=== PATIENT | female | born 1940 | race Caucasian/White ===

== ENCOUNTER 2022-01-24 22:47 | Inpatient (IN) | payer MEDICARE, SELFPAY ==
[2022-01-24 22:49] VITALS: BP 146/78; PULSE 73; RESP 18; TEMP 36.9; O2SAT 96
--- NOTE | 2022-01-24 22:56 | XRR_ITS ---
PROCEDURE INFORMATION: Exam: XR Right Hip Exam date and time: 01/24/2022 10:04 PM Age: 81 years old Clinical indication: Injury or trauma; Fall; Blunt trauma (contusions or hematomas); Right; Patient HX: R hip pain w shortening and rotation after tripping over dog; Additional info: Fall with right hip pain TECHNIQUE: Imaging protocol: XR Right hip. Views: 1 view hip with pelvis when performed. COMPARISON: No relevant prior studies available. FINDINGS: Bones/joints: There is intertrochanteric fracture proximal right femur with varus angulation. Soft tissues: Unremarkable. XR/XR hip RT 2-3V wo/w pel* [id number] IMPRESSION: Proximal right femoral fracture.
--- NOTE | 2022-01-24 22:57 | ED_ITS ---
HPI - Fall General: Chief Complaint: Fall Stated Complaint: fall Time Seen by Provider: 01/24/22 22:48 History of Present Illness: Patient is an 81-year-old female comes to the ED via EMS with right hip pain after fall. While en route EMS placed an IV and gave her fentanyl to help with pain. Fall occurred approximately an hour before arrival. She was outside and one of her dogs ran under her legs causing her to trip and she fell onto her right hip. Patient says she did not hit her head. Denies loss of consciousness, headache or neck pain. She had pain in her right hip and says she had to scoot herself to the house to go inside and call the ambulance. Pain is controlled here in the ED since fentanyl was given. Patient says she does not take any daily medications and no known chronic health conditions. Associated symptoms-after fall: Denies abdominal pain, chest pain, headache(s), hematuria or neck pain Review of Systems Const: Denies: fever(s), chills or fatigue Eyes: Denies: change in vision or eye discomfort ENMT: Denies: throat pain, odynophagia, nasal discharge or nasal congestion Card: Denies: chest pain, palpitations, edema, swelling of feet/ankles, dys pnea on exertion or orthopnea Resp: Denies: dyspnea, productive cough or non-productive cough GI: Denies: abdominal pain, nausea, vomiting, diarrhea, constipation or hematochezia : Denies: flank pain, dysuria or hematuria Musc: Reports: extremity pain (right hip pain); Denies: neck pain, back pain or extremity swelling Skin/Breast: Denies: rash or new lesions Neuro: Denies: headache(s), numbness in extremities or weakness in extremities [facility] ED PFSH: Medical History No pertinent family history No pertinent past medical history Surgical History H/O foot surgery Family History Other No significant family history Social History Smoking and tobacco status: never smoked Alcohol intake: never Substance/Drug Use: never Lives independently: Yes Household members: none Marital status: Single Physical Exam Const: COMMON NORMALS: patient oriented x3 and alert GENERAL APPEARANCE: cooperative HENMT: COMMON NORMALS: normocephalic HEAD & SCALP: normocephalic MOUTH: Normal oral and palatal mucosa present THROAT: posterior oropharynx normal and uvula midline Eye: COMMON NORMALS: Equal, round and reactive pupils present and conjunctivae normal CONJUNCTIVA: Yes conjunctivae normal PUPIL: Yes Equal, round and reactive pupils present Neck/C-Spine: COMMON NORMALS: supple GENERAL: Yes normal visual inspection Resp: COMMON NORMALS: normal respiratory effort, No retractions, No use of accessory muscles and clear to auscultation bilaterally AUSCULTATION: clear to auscultation bilaterally Cardio: COMMON NORMALS: regular rate, regular rhythm, S1 normal heart sound present, S2 normal heart sound present, No gallops present (Cardio), No clicks present (Cardio), No murmurs present (Cardio) and Peripheral pulses 2+ throughout RATE: regular rate RHYTHM: regular rhythm HEART SOUNDS: S1 normal heart sound present and S2 normal heart sound present PERIPHERAL PULSES: Peripheral pulses 2+ throughout GI: COMMON NORMALS: Normal to inspection, nondistended, normoactive bowel sounds present, Soft to palpation, non-tender and no masses PALPATION: Yes Soft to palpation : COMMON NORMALS: Yes no CVA tenderness BLADDER/KIDNEY EXAM: Yes no CVA tenderness Back/Pelvis: COMMON NORMALS: no CVA tenderness Extremity: NARRATIVE EXTREMITY EXAM: Right leg externally rotated and shortened. Neurovascular intact distally in right leg. Neuro: COMMON NORMALS: patient oriented x3 SENSORIUM/ORIENTATION: Yes alert Skin: GENERAL SKIN EXAM: dry skin Course Consultations: Consultation #1: I contacted Dr. Christine and told her about patient's injury and the right hip fracture seen on the x-ray. Patient will be admitted and Dr. Christine will be consulted. Time: 23:34 Vital Signs: Vital signs: Vital Signs Temperature 99.4 F 01/25/22 00:47 Pulse Rate 84 01/25/22 00:47 Respiratory Rate 17 01/25/22 00:47 Blood Pressure 169/76 01/25/22 00:47 Pulse Oximetry 96 01/25/22 00:47 MDM - Fall Medical Decision Making Patient is an 81-year-old female comes to the ED via EMS after having a fall. She is having right hip pain. Vitals are stable. Patient has an externally rotated and shortened right leg. Neurovascular tact distally. X-ray of right hip shows intertrochanteric hip fracture. Dr. Christine was contacted and she will be the consulting doctor patient will be admitted to hospitalist. Dr. Lanza placed the admitting orders. Lab Data I reviewed the patient's lab results. : 01/24/22 23:35 01/24/22 23:35 Radiology Impressions Hip/Pelvis X-Ray 01/24/22 22:56 IMPRESSION: Proximal right femoral fracture. Chest X-Ray 01/24/22 23:12 IMPRESSION: No acute infiltrate. Imaging Data Xray Ortho: My impression: Right hip x-ray?intertrochanteric hip fracture. Discharge Plan Discharge Patient Disposition: Admitted As Inpatient Admit Provider: Serafin Cartwright Clinical Impression: Closed fracture of right hip Condition: Stable Coding Level of Care Code ED Bicycle Repairman for Chg Fwd Exam Comprehensive
--- NOTE | 2022-01-24 23:12 | XRR_ITS ---
PROCEDURE INFORMATION: Exam: XR Chest Exam date and time: 01/24/2022 10:09 PM Age: 81 years old Clinical indication: Pre-operative exam; Respiratory screening exam; Patient HX: R hip FX - tripped over dog; Additional info: Fall TECHNIQUE: Imaging protocol: XR of the chest. Views: 1 view. COMPARISON: No relevant prior studies available. FINDINGS: Lungs: Visualized portions of the lungs are clear. There is no pulmonary vascular congestion. Pleural spaces: There is mild apical pleural thickening. Heart/Mediastinum: Heart is within normal limits of size. Bones/joints: Unremarkable. XR/XR chest 1V portable [id number] IMPRESSION: No acute infiltrate.
--- NOTE | 2022-01-24 23:13 | ECG_ITS ---
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 Measurements Intervals [place] Rate: 67 P: 81 ME: 189 QRS: 59 QRSD: 90 T: 41 QT: 418 QTc: 442 Interpretive Statements SINUS RHYTHM POSSIBLE RIGHT VENTRICULAR CONDUCTION DELAY [RSR (QR) IN V1/V2] WARNING: DATA QUALITY MAY AFFECT INTERPRETATION No previous ECG available for comparison Electronically Signed On 01-25-2022 17:26:56 CDT by Susu Asher M.D. [email or web address]
[2022-01-24 23:26] VITALS: BP 157/72; PULSE 75; RESP 18; O2SAT 98
[2022-01-24 23:56] LABS: Basophils # 0.1 10^3/uL (0.0-0.1); Basophils % 0.4 %; Eosinophils # 0.1 10^3/uL (0.0-0.8); Eosinophils % 0.8 %; Hematocrit 36.2 % (37.0-47.0); Hemoglobin 11.7 g/dL (11.5-15.3); Lymphocytes # 1.4 10^3/uL (0.8-4.8); Lymphocytes % 10.2 %; Mean Corpuscular HGB Conc 32.3 g/dL (30.0-36.0); Mean Corpuscular Hemoglobin 28.9 pg (28.0-34.0); Mean Corpuscular Volume 89.4 fl (81-99); Mean Platelet Volume 9.3 fL (7.4-10.4); Monocytes # 0.8 10^3/uL (0.2-0.9); Monocytes % 5.8 %; Neutrophils # 11.22 10^3/uL (1.8-7.7); Neutrophils % 82.4 %; Nucleated Red Blood Cells % 0 %; Platelet Count 245 10^3/cmm (130-400); Red Blood Count 4.05 10^6/uL (4.1-5.3); Red Cell Distribution Width 14.2 % (12.1-15.1); White Blood Count 13.6 10^3/uL (4.0-10.0)
[2022-01-25] VITALS (19 sets, daily range): BP systolic 105–169; BP diastolic 55–77; PULSE 67–88; RESP 16–19; TEMP 36.3–37.5; O2SAT 95–99; BMI 22.7
--- NOTE | 2022-01-25 | XR_ITS ---
WS: [id number] INTRAOPERATIVE TECHNIQUE: 5 Spot fluoroscopic images for intraoperative purposes. FLUOROSCOPY TIME: 122.5 seconds CLINICAL INFORMATION: [facility] COMPARISON: None. FINDINGS: Intramedullary femoral donny and screw fixation RIGHT hip fracture. Improved anatomic alignment today. Hardware appears in good position. XR/XR hip RT 1V wo/w pel [id number] IMPRESSION: Images obtained for intraoperative purposes.
--- NOTE | 2022-01-25 | SCC_ITS ---
Procedure done: Open reduction internal fixation right intertrochanteric hip fracture with angulation 122.5 seconds of fluoroscopic guidance, for a cumulative dose of 6.94 mGy, was provided to Dr. Christine by the radiology department. C-arm images of the RIGHT hip were saved for the patient's permanent record. [facility]
--- NOTE | 2022-01-25 00:03 | PM.HP ---
Providers/Chief Complaint Admitting Physician: Serafin Cartwright Chief Complaint: fall History of Present Illness Very pleasant, healthy 81-year-old lady without significant past medical history, physically active, tripped over one of her dogs this evening falling down her right hip with sustained right intertrochanteric hip fracture. She reports she otherwise has been at baseline state of health. She denies any recent complaints. She states she is not limited in ambulation on flat ground, and is able to take flights of stairs without having to catch her breath. Review of Systems Const: Denies: fever(s), chills, body aches or malaise Eyes: Denies: change in vision or eye redness ENMT: Denies: throat pain, oral sores or ear or mastoid pain Card: Denies: chest pain, edema, pre-syncope or dyspnea on exertion Resp: Denies: dyspnea, productive cough, change in phlegm color or hemoptysis GI: Denies: abdominal pain, nausea, vomiting, diarrhea, constipation, hematochezia or melena : Denies: flank pain, dysuria, urinary frequency, urinary urgency or hematuria Musc: Reports: joint pain (R hip) and deformity; Denies: back pain, joint swelling or joint redness Skin/Breast: Denies: rash, sores or new lesions Neuro: Denies: headache(s), numbness in extremities, weakness in extremities, dizziness, confusion or seizure-like activity Endo: Denies: polyuria or polydipsia Hemal/Lymph: Denies: easy bleeding or purpura All/Imm: Denies: urticaria, throat swelling or tongue swelling PFSH Acute PFSH: Medical History No pertinent family history No pertinent past medical history Surgical History H/O foot surgery Family History (Updated 01/25/22 @ 00:12 by Serafin Cartwright MD) Other No significant family history Social History Smoking and tobacco status: never smoked Alcohol intake: never Substance/Drug Use: never Lives independently: Yes Household members: none Marital status: Single Vitals/I&O/Wt Last Vital Signs Temp 98.4 F 01/24/22 22:49 Pulse 73 01/24/22 22:49 Resp 18 01/24/22 22:49 BP 146/78 01/24/22 22:49 Pulse Ox 96 01/24/22 22:49 Physical Exam Const: COMMON NORMALS: no acute distress and patient oriented x3 HENMT: COMMON NORMALS: oropharynx normal Neck/C-Spine: COMMON NORMALS: no JVD Resp: COMMON NORMALS: normal respiratory effort and clear to auscultation bilaterally AUSCULTATION: clear to auscultation bilaterally Cardio: COMMON NORMALS: no JVD, regular rhythm, S1 normal heart sound present, S2 normal heart sound present and No murmurs present (Cardio) RHYTHM: regular rhythm HEART SOUNDS: S1 normal heart sound present and S2 normal heart sound present GI: COMMON NORMALS: Normal to inspection, nondistended, normoactive bowel sounds present, Soft to palpation and non-tender PALPATION: Yes Soft to palpation Extremity: COMMON NORMALS: no joint enlargement and no pedal edema OTHER: Everted, shortened right leg. Warm, perfused. Neuro: COMMON NORMALS: patient oriented x3 and moves all extremities Skin: COMMON NORMALS: no rashes or lesions noted GENERAL SKIN EXAM: no rashes or lesions noted OTHER: Minimal abrasion/wound medial left foot, crusted blood she states sustained a scrape trying to go back to the house after her fall. Data : 01/24/22 23:35 01/24/22 23:35 A&P Assessment and plan (1) Closed fracture of right hip: After a mechanical fall. She is otherwise healthy. With unrestricted ambulation on flat ground, taking stairs without shortness of breath. Below average risk on NSQIP calculation. Would not pursue any additional work-up prior to surgical intervention with usual precautions. Recheck hemoglobin in the morning. NPO. Pending discussion with orthopedics. With regards to disposition she states she would very much like to avoid going to long term and states has lots of friends and family to help her achieve her goal of going back home. Status: Acute Qualifiers: Encounter type: initial encounter Qualified Code(s): S72.001A - Fracture of unspecified part of neck of right femur, initial encounter for closed fracture Plan Small abrasion on medial left foot when trying to crawl for help. Amount of dried blood, small abrasion, less than 0.5 cm, appears clean, no surrounding erythema. Please reassess. Attestations Medical Necessity Statement*: Admission of over 2 midnights is anticipated for assessment and management of right hip fracture. Coding Level of Care Code Acute Builder Beam for Randall Delacruz Diagnoses Closed fracture of right hip S72.001A Encounter type: initial encounter
[2022-01-25 00:18] LABS: Alanine Aminotransferase 15 U/L (0-33); Albumin Level 4.3 g/dL (3.5-5.2); Alkaline Phosphatase 74 IU/L (35-105); Anion Gap 16.7 (5-19); Aspartate Amino Transferase 22 U/L (0-32); Blood Urea Nitrogen 15 mg/dL (8-23); Calcium 9.2 mg/dL (8.5-10.5); Carbon Dioxide 21 mmol/L (22-29); Chloride 101 mmol/L (98-107); Globulin 2.6 g/dL (1.3-4.6); Glucose 109 mg/dL (65-115); Osmolality Calculated 281 mOsm/kg (285-295); Potassium 3.7 mmol/L (3.5-5.1); Sodium 135 mmol/L (136-145); Total Bilirubin 0.3 mg/dL (0.15-1.2); Total Protein 6.9 g/dL (6.6-8.7)
[2022-01-25 00:24] LABS: INR 0.98 (0.8-1.2)
[2022-01-25] MEDS: heparin 5,000 unit/mL INJ 1 mL 5000 UNIT SUBCUT (01:05)
[2022-01-25] MEDS: morphine 4 mg/mL SDV 1 mL 2 MG IVP (01:05)
--- NOTE | 2022-01-25 07:43 | ANES.PREANE2 ---
Pre-Anesthetic Assessment Height/Weight: Weight 73.346 kg Temp Pulse Resp BP Pulse Ox 98.6 F 76 18 130/69 95 01/25/22 07:36 01/25/22 07:36 01/25/22 07:36 01/25/22 07:36 01/25/22 07:36 Operation Date: 01/25/22 08:40 Proposed Procedures p Trochanteric Femoral Nail(Right) - Carola Christine MD Familial anesthetic complications: None Was Beta Kofi taken within 24 hours: N/A Was Clonidine taken within 24 hours: N/A Last intake: > 8hrs Social No alcohol and No tobacco Exam alert, oriented x 3, clear to auscultation bilaterally and regular rate & rhythm Airway Mallampati: Class I Dentition: full Pulmonary None reported CV/HEM None reported None reported Hepatic None reported GI None reported Metabolic None reported Musc/skel None reported Neuropsych None reported Anesthetic Plan ASA status: 1 Anesthesia: General Risk of > 500 ml blood loss (7ml/kg in children): No Medications/Allergies Home Medications Medication Instructions Recorded Confirmed Last Taken Type No Known Home Medications 01/25/22 01/25/22 Unknown History Allergies Allergy/AdvReac Type Severity Reaction Status Date / Time Penicillins Allergy Severe ALGY-Anaphy Unverified 01/25/22 00:27 laxis Current Medications Generic Name Dose Route Start Last Admin Trade Name Freq PRN Reason Stop Dose Admin Morphine Sulfate 2 mg 01/25/22 00:50 01/25/22 01:05 Morphine 4 Mg/Ml Sdv 1 Ml IVP 2 mg Q4H PRN Administration SEVERE PAIN PFSH Anesthesia Medical History No pertinent family history No pertinent past medical history Surgical History H/O foot surgery Family History Other No significant family history Social History Smoking and tobacco status: never smoked Alcohol intake: never Substance/Drug Use: never Lives independently: Yes Household members: none Marital status: Single Data Anesthesia : 01/24/22 23:35 01/24/22 23:35 Short CBC 01/24/22 Range/Units 23:35 WBC 13.6 H (4.0-10.0) 10^3/uL Hgb 11.7 (11.5-15.3) g/dL Hct 36.2 L (37.0-47.0) % MCV 89.4 (81-99) fl Plt Count 245 (130-400) 10^3/cmm Neut % (Auto) 82.4 % Neut # (Auto) 11.22 H (1.8-7.7) 10^3/uL BMP 01/24/22 23:35 Sodium 135 L Potassium 3.7 Chloride 101 Carbon Dioxide 21 L BUN 15 Creatinine 0.5 Glucose 109 Calcium 9.2 Liver Function 01/24/22 Range/Units 23:35 Total Bilirubin 0.3 (0.15-1.2) mg/dL AST 22 (0-32) U/L ALT 15 (0-33) U/L Alkaline Phosphatase 74 (35-105) IU/L Albumin 4.3 (3.5-5.2) g/dL Coags 01/24/22 23:35 PT 13.30 INR 0.98 Cardiac Studies: No Data to Display
--- NOTE | 2022-01-25 07:47 | P.CONIM_ITS ---
Providers/Reason For Consult Consulting Physician/Specialty*: Carola Christine MD Reason for Consult*: Right intertrochanteric hip fracture Requesting Physician: Frank Lanza MD Attending Physician: Serafin Cartwright History of Present Illness History of Present Illness Alida Drake is a 81 year old female who fell over her collie onto her right hip. Previously, she had no significant past medical history, she was very physically active, and she was rather healthy at baseline. She is able to go up and down stairs without respiratory issues. Review of Systems Const: Denies: fever(s), chills, body aches or malaise Eyes: Denies: change in vision or eye redness ENMT: Denies: throat pain, oral sores or ear or mastoid pain Card: Denies: chest pain, edema, pre-syncope or dyspnea on exertion Resp: Denies: dyspnea, productive cough, change in phlegm color or hemoptysis GI: Denies: abdominal pain, nausea, vomiting, diarrhea, constipation, hematoc hezia or melena : Denies: flank pain, dysuria, urinary frequency, urinary urgency or hematuria Musc: Reports: joint pain (R hip) and deformity; Denies: back pain, joint swelling or joint redness Skin/Breast: Denies: rash, sores or new lesions Neuro: Denies: headache(s), numbness in extremities, weakness in extremities, dizziness, confusion or seizure-like activity Endo: Denies: polyuria or polydipsia Hemal/Lymph: Denies: easy bleeding or purpura All/Imm: Denies: urticaria, throat swelling or tongue swelling Medications/Allergies Home Medications Medication Instructions Recorded Confirmed Last Taken Type No Known Home Medications 01/25/22 01/25/22 Unknown History Allergies Allergy/AdvReac Type Severity Reaction Status Date / Time Penicillins Allergy Severe ALGY-Anaphy Unverified 01/25/22 00:27 laxis Current Medications Generic Name Dose Route Start Last Admin Trade Name Freq PRN Reason Stop Dose Admin Morphine Sulfate 2 mg 01/25/22 00:50 01/25/22 01:05 Morphine 4 Mg/Ml Sdv 1 Ml IVP 2 mg Q4H PRN Administration SEVERE PAIN PFSH Acute PFSH: Medical History No pertinent family history No pertinent past medical history Surgical History H/O foot surgery Family History Other No significant family history Social History Smoking and tobacco status: never smoked Alcohol intake: never Substance/Drug Use: never Lives independently: Yes Household members: none Marital status: Single Vitals/I&O/Wt Last Vital Signs Temp 98.6 F 01/25/22 07:36 Pulse 76 01/25/22 07:36 Resp 18 01/25/22 07:36 BP 130/69 01/25/22 07:36 Pulse Ox 95 01/25/22 07:36 01/24/22 01/25/22 01/25/22 22:59 06:59 14:59 Output Total 1250 / 1250 Balance -1250 / -1250 Weight last 48 hrs Weight 161 lb 11.2 oz Physical Exam Const: COMMON NORMALS: no acute distress, average body habitus, patient oriented x3 and alert GENERAL APPEARANCE: cooperative and comfortable ORIENTATION/CONSCIOUSNESS: Yes awake HENMT: COMMON NORMALS: normocephalic and atraumatic HEAD & SCALP: normocephalic and atraumatic Eye: GENERAL EYE: appearance normal, both eyes and all related structures Chest: COMMONS NORMALS: normal inspection of the chest Resp: COMMON NORMALS: normal respiratory effort EFFORT & INSPECTION: Yes able to speak in complete sentences and Yes symmetric chest movement Extremity: RIGHT LOWER EXTREMITY: Yes hip joint Right hip: Yes inspection (No significant ecchymosis), Yes palpation (Minimal tenderness), Yes ROM (Painful, able to move right foot.) and Yes neurovascular exam (Intact distally) Neuro: COMMON NORMALS: patient oriented x3 SENSORIUM/ORIENTATION: Yes alert Psych: COMMON NORMALS: mental status grossly normal APPEARANCE: Yes grossly normal ATTITUDE: Yes calm and Yes engaged ATTENTION/CONCENTRATION: Yes attention grossly intact Skin: COMMON NORMALS: no rashes or lesions noted GENERAL SKIN EXAM: no rashes or lesions noted Urinary Catheter Management: Louise: Cath Placed During This Visit: yes, but has since been removed by the nurse Reason for Continuing Indwelling Catheter: Perioperative Use in Selected Surgeries Urinary Catheter Date of Insertion: 01/25/22 Urinary Catheter Time of Insertion: 00:50 Date Urinary Catheter Removed: 01/25/22 Time Urinary Catheter Discontinued: 00:50 Data : 01/24/22 23:35 01/24/22 23:35 Xray Ortho: I personally reviewed and interpreted this imaging study as follows: My impression: The patient has a right intertrochanteric hip fracture with comminution. She has nearly 90 degrees of angulation at the fracture site. There is significant shortening. A&P Assessment and plan (1) Closed intertrochanteric fracture of right hip: This 81-year-old woman was admitted last evening after tripping over her dogs which resulted in her falling onto her right hip. The patient brought to the emergency department and was found to have a right intertrochanteric hip fracture. I was called and arrangements were made for open reduction internal fixation. Status: Acute Consult Attestations Medical Necessity Statement: Patient requires hospitalization for intratrochanteric right hip fracture with significant angulation and displacement. Coding Level of Care Code Acute Sustainability Coordinator for Randall Delacruz Diagnoses Closed intertrochanteric fracture of right hip S72.141A
[2022-01-25] MEDS: sodium chloride 0.9% 1,000 ML 30 ML IV (07:55)
[2022-01-25] MEDS: CELEcoxib 200 mg Capsule 400 MG PO (07:56)
[2022-01-25] MEDS: acetaminophen 1,000 MG/100 ML PIGGYBACK 400 MG IV (07:56)
--- NOTE | 2022-01-25 08:01 | PC.NURSE ---
Patient left for surgery around 0730 this AM.
[2022-01-25] MEDS: vancomycin 1,000 MG in sodium chloride 0.9% 250 ML 250 MG IV (08:08)
--- NOTE | 2022-01-25 09:37 | P.OP_ITS ---
Operative Report Date of procedure: January 25, 2022 Pre-op diagnosis: Right intertrochanteric hip fracture Post-op diagnosis: Right intertrochanteric hip fracture Procedure done: Open reduction internal fixation right intertrochanteric hip fracture with angulation Implants: Gamma 3 trochanteric nail size 11 mm x 180 mm x 125 degrees, 10.5 mm x 100 mm gamma lag screw with a 5 mm x 35 mm distal locking screw Pathology: none sent Surgeon: Carola Christine Truck Crane Operator Helper: [facility] operating room technicians Anesthesia: General (LMA, ASA 1) Estimated blood loss (mL): 25 IV fluids (mL): 300 Urine output (mL): 300 Complications: None Findings: Comminuted right intertrochanteric hip fracture with approximately 90 degrees of varus angulation Condition: stable Disposition: PACU (Then to floor for postoperative rehabilitation and pain management) Brief History: This 81-year-old woman was in her usual state of good health when she tripped over her dog. She fell directly onto her right hip. She presented to the emergency room unable to ambulate with significant right hip pain. She was found to have a right intertrochanteric hip fracture and was admitted to the hospitalist team for preparation for surgery. Risks and complications of surgery were discussed with her. Consent was signed preoperatively. The patient was scheduled for the above procedure. Procedure: Patient is brought to the operating theater. After undergoing adequate general anesthesia with LMA, ASA 1, the patient was transferred to the fracture table, positioned on the table and fluoroscopic guidance obtained throughout the surgical procedure. Prior to the commencement of the surgical procedure, a surgical pause was performed. At the time of the surgical pause, we confirmed the site and side of surgery as well as preoperative surgical markings and a ppropriate and timely administration of IV antibiotics, vancomycin 1 g. Availability of equipment was also confirmed. Fluoroscopy was used to confirm the fracture was appropriately reduced in both AP and lateral planes. An incision was then made slightly above the greater trochanter to allow access to the greater trochanter. An awl was used to enter the greater trochanter and a guidewire was subsequently placed. Once the guidewire was confirmed to be in appropriate position in AP and lateral planes, reaming was accomplished over this to allow for the proximal diameter of the nail. Guidewire was then removed. An 11 mm x 180 mm x 125 degree gamma 3 trochanteric nail was placed into appropriate position with positioning being confirmed in AP and lateral planes on the x-ray. It passed without difficulty. Guidewire was then passed through the jigging system into the femoral head. We wanted to be center or slightly inferior and posterior to center. Guidewire was placed into appropriate position. Once the guidewire was in appropriate position and this position was confirmed by x-ray. This was then measured and we chose a 100 mm lag screw. We reamed to allow for the lag screw to be placed. The 100 mm lag screw was then passed into the femoral head through the trochanteric nail. This was passed uneventfully and again position was confirmed in AP and lateral planes. Compression was obtained under fluoroscopic guidance. The set screw was then placed in position, tightened completely, and subsequently backed off one-eighth turn. The construct was left in position and attention was directed distally. Cannulas were again used to determine appropriate placement for the distal screw. This was placed in position without difficulty. It was measured off of the drill. The appropriate length screw was then obtained and placed in position without difficulty. Once the screw was in position, we confirmed appropriate placement of the components, and we removed the jigging system. Attention was then directed to closure. The hip was copiously irrigated with normal saline with antibiotics. Following this it was dried and closed. Tensor fascia amber was closed proximally with 0 Vicryl in an interrupted fashion. Subcutaneous tissues were closed with 2-0 Monocryl, and the skin was closed with a continuous 3-0 Monocryl subcuticular stitch. This was then covered with Dermabond, Steri- Strips, and OpSite. The patient was removed from the fracture table and returned to recovery in satisfactory condition. The patient will be discharged to the floor for postoperative rehabilitation and pain management. There were no specimens obtained. Related Problem List Diagnoses (1) Closed intertrochanteric fracture of right hip:
[2022-01-25] MEDS: oxyCODONE 5 mg IR Tab/Cap PO (10:18)
--- NOTE | 2022-01-25 12:12 | PM.PN ---
Subjective Subjective: Patient was seen postoperatively she is alert oriented x3, on room air, pain is well controlled, she tells me that she wants to go home tomorrow, is ready to work with physical therapy Vitals/I&O/Wt Last Vital Signs Temp 97.6 F 01/25/22 09:53 Pulse 71 01/25/22 11:06 Resp 16 01/25/22 11:06 BP 131/60 01/25/22 09:53 Pulse Ox 98 01/25/22 11:06 01/24/22 01/25/22 01/25/22 22:59 06:59 14:59 Intake Total 1350 / 1350 Output Total 1250 / 1250 625 / 625 Balance -1250 / -1250 725 / 725 Weight last 48 hrs Weight 63.957 kg Weight 73.346 kg Physical Exam Const: COMMON NORMALS: no acute distress and patient oriented x3 Resp: COMMON NORMALS: normal respiratory effort, No retractions, No use of accessory muscles and clear to auscultation bilaterally AUSCULTATION: clear to auscultation bilaterally Cardio: COMMON NORMALS: regular rate, regular rhythm, S1 normal heart sound present and S2 normal heart sound present RATE: regular rate RHYTHM: regular rhythm HEART SOUNDS: S1 normal heart sound present and S2 normal heart sound present GI: COMMON NORMALS: Normal to inspection, nondistended, normoactive bowel sounds present, Soft to palpation, non-tender and No hepatosplenomegaly present PALPATION: Yes Soft to palpation and Yes No hepatosplenomegaly present Extremity: COMMON NORMALS: no pedal edema Neuro: COMMON NORMALS: patient oriented x3 Urinary Catheter Management: Louise: Cath Placed During This Visit: yes, but has since been removed by the nurse Reason for Continuing Indwelling Catheter: Perioperative Use in Selected Surgeries Urinary Catheter Date of Insertion: 01/25/22 Urinary Catheter Time of Insertion: 00:50 Date Urinary Catheter Removed: 01/25/22 Time Urinary Catheter Discontinued: 00:50 Data : 01/24/22 23:35 01/24/22 23:35 A&P Assessment and plan (1) Closed fracture of right hip: After a mechanical fall. She is otherwise healthy. With unrestricted ambulation on flat ground, taking stairs without shortness of breath. Status post open reduction internal fixation Pain control and anticoagulation as per orthopedic team Monitor hemoglobin With regards to disposition she states she would very much like to avoid going to [facility] and states has lots of friends and family to help her achieve her goal of going back home. Status: Acute Qualifiers: Encounter type: initial encounter Qualified Code(s): S72.001A - Fracture of unspecified part of neck of right femur, initial encounter for closed fracture Plan Small abrasion on medial left foot when trying to crawl for help. Amount of dried blood, small abrasion, less than 0.5 cm, appears clean, no surrounding erythema. Please reassess. Attestations Medical Necessity Statement*: Patient requires hospitalization for hip fracture Coding Level of Care Code Acute Supervisor Electronics Testing for Randall Delacruz Diagnoses Closed fracture of right hip S72.001A Encounter type: initial encounter
[2022-01-25] MEDS: CELEcoxib 200 mg Capsule PO (17:11)
--- NOTE | 2022-01-25 17:32 | PC.NURSE ---
Patient is not complaining of any pain since coming back from surgery, even refused IV tylenol with education that it helps prevent pain. Patient worked with PT and has been walking the hallways independent with a walker. Eating a regular diet. Louise is intact and clean, with adequate output. Will continue to monitor and give report to night nurse.
[2022-01-26] VITALS: BP 95/44; PULSE 82; RESP 17; TEMP 37.1; O2SAT 98
[2022-01-26 04:00] VITALS: BP 117/58; PULSE 77; RESP 16; TEMP 37.3; O2SAT 97
[2022-01-26 05:22] LABS: Basophils % 0.2 %; Hematocrit 30.6 % (37.0-47.0); Hemoglobin 9.9 g/dL (11.5-15.3); Lymphocytes # 1.8 10^3/uL (0.8-4.8); Lymphocytes % 14.8 %; Mean Corpuscular HGB Conc 32.4 g/dL (30.0-36.0); Mean Corpuscular Hemoglobin 29.1 pg (28.0-34.0); Mean Platelet Volume 9.3 fL (7.4-10.4); Monocytes # 1.2 10^3/uL (0.2-0.9); Monocytes % 9.9 %; Neutrophils # 8.98 10^3/uL (1.8-7.7); Neutrophils % 74.8 %; Nucleated Red Blood Cells % 0 %; Platelet Count 197 10^3/cmm (130-400); Red Cell Distribution Width 14.6 % (12.1-15.1)
[2022-01-26 05:42] LABS: Anion Gap 16.5 (5-19); Blood Urea Nitrogen 15 mg/dL (8-23); Calcium 9.2 mg/dL (8.5-10.5); Carbon Dioxide 21 mmol/L (22-29); Chloride 105 mmol/L (98-107); Glucose 116 mg/dL (65-115); Osmolality Calculated 288 mOsm/kg (285-295); Potassium 4.5 mmol/L (3.5-5.1); Sodium 138 mmol/L (136-145)
[2022-01-26 07:40] VITALS: BP 105/56; PULSE 80; RESP 13; TEMP 37.1; O2SAT 96
[2022-01-26] MEDS: vancomycin 1,000 MG in sodium chloride 0.9% 250 ML 250 MG IV (08:09)
[2022-01-26] MEDS: aspirin 325 mg EC Tablet PO (08:13)
[2022-01-26] MEDS: docusate sodium 100 mg Capsule PO (08:13)
[2022-01-26] MEDS: CELEcoxib 200 mg Capsule PO (08:13)
[2022-01-26] MEDS: multivitamin therapeutic Tablet 1 TAB PO (08:13)
--- NOTE | 2022-01-26 11:15 | P.DS_ITS ---
Discharge Providers Date of Admission: 01/24/22 23:26 Date of Discharge: January 26, 2022 Attending Provider at Admission: Serafin Cartwright Attending Provider at Discharge: Jeffery Santiago MD Consults: Orthopedics: Dr. Chung Diagnoses at Discharge Discharge Diagnosis (1) Closed fracture of right hip: Status: Acute Qualifiers: Encounter type: initial encounter Qualified Code(s): S72.001A - Fracture of unspecified part of neck of right femur, initial encounter for closed fracture Reason for Visit Reason for Visit: fall Brief History: History as per HPI: Very pleasant, healthy 81-year-old lady without significant past medical history, physically active, tripped over one of her dogs this evening falling down her right hip with sustained right intertrochanteric hip fracture. She reports she otherwise has been at baseline state of health.? She denies any recent complaints.? She states she is not limited in ambulation on flat ground, and is able to take flights of stairs without having to catch her breath. Hospital Course Hospital Course Patient was admitted for further evaluation of hip fracture. Orthopedics was consulted and she underwent ORIF on 01/25. Her postoperative stay in hospital stay was unremarkable. She worked with physical therapy. Safe discharge planning were discussed in detail with the patient and she wanted to go home with home health. She is been discharged hemodynamically stable condition advised to follow-up with orthopedics as an outpatient for further care. She is advised in detail to continue with physical therapy at home. Physical Exam Const: COMMON NORMALS: no acute distress and patient oriented x3 HENMT: COMMON NORMALS: oropharynx normal Neck/C-Spine: COMMON NORMALS: no JVD Resp: COMMON NORMALS: normal respiratory effort, No retractions, No use of accessory muscles and clear to auscultation bilaterally AUSCULTATION: clear to auscultation bilaterally Cardio: COMMON NORMALS: no JVD, regular rate, regular rhythm, S1 normal heart sound present, S2 normal heart sound present and No murmurs present (Cardio) RATE: regular rate RHYTHM: regular rhythm HEART SOUNDS: S1 normal heart sound present and S2 normal heart sound present GI: COMMON NORMALS: Normal to inspection, nondistended, normoactive bowel sounds present, Soft to palpation, non-tender and No hepatosplenomegaly present PALPATION: Yes Soft to palpation and Yes No hepatosplenomegaly present Extremity: COMMON NORMALS: no joint enlargement and no pedal edema OTHER: Everted, shortened right leg. Warm, perfused. Neuro: COMMON NORMALS: patient oriented x3 and moves all extremities Skin: COMMON NORMALS: no rashes or lesions noted GENERAL SKIN EXAM: no rashes or lesions noted OTHER: Minimal abrasion/wound medial left foot, crusted blood she states sustained a scrape trying to go back to the house after her fall. Urinary Catheter Management: Louise: Cath Placed During This Visit: yes, but has since been removed by the nurse Reason for Continuing Indwelling Catheter: Decision to DC Catheter Urinary Catheter Date of Insertion: 01/25/22 Urinary Catheter Time of Insertion: 00:50 Date Urinary Catheter Removed: 01/26/22 Time Urinary Catheter Discontinued: 07:23 Discharge Data Studies Completed and Pending Completed Studies During Hospitalization Category Date Time Status XR chest 1V portable [id number] Urgent Exams 01/24/22 23:12 Completed XR hip RT 1V wo/w pel [id number] Routine Exams 01/25/22 Completed XR hip RT 2-3V wo/w pel* [id number] Stat Exams 01/24/22 22:56 Completed Pending at discharge Category Date Time Status Basic Metabolic Panel AM LABS Lab 01/27/22 04:00 Ordered Basic Metabolic Panel AM LABS Lab 01/28/22 04:00 Ordered Complete Blood Count w/Auto AM LABS Lab 01/27/22 04:00 Ordered Complete Blood Count w/Auto AM LABS Lab 01/28/22 04:00 Ordered Radiology Impressions Hip/Pelvis X-Ray 01/24/22 22:56 IMPRESSION: Proximal right femoral fracture. Chest X-Ray 01/24/22 23:12 IMPRESSION: No acute infiltrate. Hip X-Ray 01/25/22 00:00 IMPRESSION: Images obtained for intraoperative purposes. Laboratory Results WBC 12.0 10^3/uL (4.0-10.0) H 01/26/22 04:51 RBC 3.40 10^6/uL (4.1-5.3) L 01/26/22 04:51 Hgb 9.9 g/dL (11.5-15.3) L 01/26/22 04:51 Hct 30.6 % (37.0-47.0) L 01/26/22 04:51 MCV 90.0 fl (81-99) 01/26/22 04:51 MCH 29.1 pg (28.0-34.0) 01/26/22 04:51 MCHC 32.4 g/dL (30.0-36.0) 01/26/22 04:51 RDW 14.6 % (12.1-15.1) 01/26/22 04:51 Plt Count 197 10^3/cmm (130-400) 01/26/22 04:51 MPV 9.3 fL (7.4-10.4) 01/26/22 04:51 Neut % (Auto) 74.8 % 01/26/22 04:51 Lymph % (Auto) 14.8 % 01/26/22 04:51 [place] % (Auto) 9.9 % 01/26/22 04:51 Eos % (Auto) 0.0 % 01/26/22 04:51 Baso % (Auto) 0.2 % 01/26/22 04:51 Neut # (Auto) 8.98 10^3/uL (1.8-7.7) H 01/26/22 04:51 Lymph # (Auto) 1.8 10^3/uL (0.8-4.8) 01/26/22 04:51 [place] # (Auto) 1.2 10^3/uL (0.2-0.9) H 01/26/22 04:51 Eos # (Auto) 0.0 10^3/uL (0.0-0.8) 01/26/22 04:51 Baso # (Auto) 0.0 10^3/uL (0.0-0.1) 01/26/22 04:51 Nucleated RBC % (auto) 0 % 01/26/22 04:51 Nucleated RBCs # 0.0 /100WBC 01/26/22 04:51 PT 13.30 SECONDS (12.1-14.9) 01/24/22 23:35 INR 0.98 (0.8-1.2) 01/24/22 23:35 Sodium 138 mmol/L (136-145) 01/26/22 04:51 Potassium 4.5 mmol/L (3.5-5.1) 01/26/22 04:51 Chloride 105 mmol/L (98-107) 01/26/22 04:51 Carbon Dioxide 21 mmol/L (22-29) L 01/26/22 04:51 Anion Gap 16.5 (5-19) 01/26/22 04:51 BUN 15 mg/dL (8-23) 01/26/22 04:51 Creatinine 0.6 mg/dL (0.5-0.9) 01/26/22 04:51 GFR Calculation Not Reportable 01/26/22 04:51 Glucose 116 mg/dL (65-115) H 01/26/22 04:51 Calculated Osmolality 288 mOsm/kg (285-295) 01/26/22 04:51 Calcium 9.2 mg/dL (8.5-10.5) 01/26/22 04:51 Total Bilirubin 0.3 mg/dL (0.15-1.2) 01/24/22 23:35 AST 22 U/L (0-32) 01/24/22 23:35 ALT 15 U/L (0-33) 01/24/22 23:35 Alkaline Phosphatase 74 IU/L (35-105) 01/24/22 23:35 Total Protein 6.9 g/dL (6.6-8.7) 01/24/22 23:35 Albumin 4.3 g/dL (3.5-5.2) 01/24/22 23:35 Globulin 2.6 g/dL (1.3-4.6) 01/24/22 23:35 Vitals Last Vital Signs Temp 98.7 F 01/26/22 07:40 Pulse 80 01/26/22 07:40 Resp 13 01/26/22 07:40 BP 105/56 01/26/22 07:40 Pulse Ox 96 01/26/22 07:40 Discharge Plan Discharge Patient Disposition: Home Health Service Condition: Stable Prescriptions: New celecoxib 200 mg Capsule 200 mg PO BID 14 Days Qty: 28 0RF aspirin 325 mg Tablet,Delayed Release (Dr/Ec) 325 mg PO DAILY 30 Days Qty: 30 0RF multivitamin with folic acid [Thera] 400 mcg Tablet 1 tab PO DAILY 30 Days Qty: 30 0RF ferrous gluconate 324 mg (38 mg iron) tablet 324 mg PO BID Qty: 90 0RF famotidine [Pepcid] 20 mg tablet 20 mg PO DAILY Qty: 30 0RF Discharge Orders: Discharge Order (Routine); Ordered 01/26/22 Ordered By: Jeffery Santiago Other Ambulatory Orders: DME: Walker (Order) Location: None Selected Ordered By: Boyd Thomson [place] [facility] [facility] [Outside] Carola Christine MD [Physician] - 2 weeks Discharge Diet: Usual diet Discharge Activity: Resume usual activity and Increase activity as tolerated Patient Instructions: Opioid Safety Activity Restrictions/Additional Instructions: Please follow-up with orthopedics as directed. Please increase your physical activity as possible. Please follow with your primary care provider within next 1 week. Discharge Attestations Time Spent in Discharge Care*: greater than 30 min Specific Discharge Activities: educating patient, discussing with pcp/other providers, discussing with senior case manager/social workers/dc planners, documenting/other paperwork and evaluating patient/reviewing data Status at Discharge: Cognitive status at discharge: cognitively intact , Behavioral status at discharge: cooperative , Functional status at discharge: uses cane/walker , Overall status at discharge: patient is progressing back to baseline Quality Metrics Clinical Quality Measures [ No reported AMI, CVA or VTE this stay] Coding Level of Care Code Acute Chg FW DC note Diagnoses Closed fracture of right hip S72.001A Encounter type: initial encounter
[2022-01-26 12:00] VITALS: BP 115/62; PULSE 81; RESP 13; TEMP 36.9; O2SAT 96
--- NOTE | 2022-01-26 12:42 | P.PN_ITS ---
Subjective Subjective: Patient is seen first thing in the morning, and when I walked into the room, she is standing up and independently ambulating. By report, she ambulated last evening as well without difficulty. She is wishing to go home today. Medications: Reviewed: Yes Vitals/I&O/Wt Last Vital Signs Temp 98.7 F 01/26/22 07:40 Pulse 80 01/26/22 07:40 Resp 13 01/26/22 07:40 BP 105/56 01/26/22 07:40 Pulse Ox 96 01/26/22 07:40 01/25/22 01/26/22 01/26/22 22:59 06:59 14:59 Intake Total 720 / 2070 200 / 2270 250 / 250 Output Total 400 / 1025 950 / 1975 400 / 400 Balance 320 / 1045 -750 / 295 -150 / -150 Weight last 48 hrs Weight 141 lb Weight 161 lb 11.2 oz Physical Exam Const: COMMON NORMALS: no acute distress, average body habitus, patient oriented x3 and alert GENERAL APPEARANCE: cooperative and comfortable ORIENTATION/CONSCIOUSNESS: Yes awake HENMT: COMMON NORMALS: normocephalic and atraumatic HEAD & SCALP: normocephalic and atraumatic Eye: GENERAL EYE: appearance normal, both eyes and all related structures Chest: COMMONS NORMALS: normal inspection of the chest Resp: COMMON NORMALS: normal respiratory effort EFFORT & INSPECTION: Yes able to speak in complete sentences and Yes symmetric chest movement Extremity: RIGHT LOWER EXTREMITY: Yes hip joint (Thigh is soft and nontender) Right hip: Yes inspection (Dressing is dry and intact), Yes palpation (Minimal to no tenderness), Yes ROM (Nonpainful) and Yes neurovascular exam (Intact with no evidence of DVT) Neuro: COMMON NORMALS: patient oriented x3 SENSORIUM/ORIENTATION: Yes alert Psych: COMMON NORMALS: mental status grossly normal APPEARANCE: Yes grossly normal ATTITUDE: Yes calm and Yes engaged ATTENTION/CONCENTRATION: Yes attention grossly intact Skin: COMMON NORMALS: no rashes or lesions noted GENERAL SKIN EXAM: no rashes or lesions noted Urinary Catheter Management: Louise: Cath Placed During This Visit: yes, but has since been removed by the nurse Reason for Continuing Indwelling Catheter: Decision to DC Catheter Urinary Catheter Date of Insertion: 01/25/22 Urinary Catheter Time of Insertion: 00:50 Date Urinary Catheter Removed: 01/26/22 Time Urinary Catheter Discontinued: 07:23 Data : 01/26/22 04:51 01/26/22 04:51 A&P Assessment and plan (1) Closed intertrochanteric fracture of right hip: This 81-year-old woman was admitted after tripping over her dog which resulted in her falling onto her right hip. The patient brought to the emergency department and was found to have a right intertrochanteric hip fracture. Patient underwent open reduction internal fixation of her right intertrochanteric hip fracture. This surgery was accomplished in the morning on January 25, and that evening, the patient was independently ambulating in the hallway. She is seen today, post operative day #1. She feels ready for disch arge to home, and nursing as well as physical therapy is in agreement with this plan. Patient has refused all home health as she feels her neighbor can help her. She knows to contact me should she have any changes in that decision. Status: Acute Attestations Medical Necessity Statement*: Patient is ready for discharge to home, but she did require overnight admission and observation following hip fracture. Coding Level of Care Code Acute Firing Pin Gauger for Randall Delacruz Diagnoses Closed intertrochanteric fracture of right hip S72.141A
--- NOTE | 2022-01-26 15:19 | PC.NURSE ---
Discharge teaching and educations was given, all questions were answered at this time. IV was discontinued. Vitals stable. Neurovasculars were good. Belongings were accounted for.
[2022-01-26 15:21] VITALS: BP 115/62; PULSE 81; RESP 13; TEMP 36.9; O2SAT 96
--- NOTE | 2022-01-27 18:21 | PM.OP ---
Operative Report Date of procedure: January 27, 2022 Pre-op diagnosis: Right intertrochanteric hip fracture Post-op diagnosis: Right intertrochanteric hip fracture Post-op findings: Comminuted angulated right intertrochanteric hip fracture
== END 2022-01-26 15:21 | disposition home or self-care (01) | DRG 482 ==
LOC: ER 23:42 → MEDSURG 23:43
PROVIDERS: Emergency Medicine; Specialist; Admitting Provider Internal Medicine; Emergency Provider Physician Assistant; Visit Provider Student in an Organized Health Care Education/Training Program
PROC: 0QS606Z Reposition Right Upper Femur with Intramedullary Internal Fixation Device, Open Approach (ICD-10-PCS; CPT 27245; principal; 2022-01-25 08:00)
DX: S72.141A Displaced intertrochanteric fracture of right femur, initial encounter for closed fracture (principal); W18.31XA Fall on same level due to stepping on an object, initial encounter
CPT/HCPCS: 36415; 51702; 71045; 73501; 73502; 76000; 80048; 80053; 85025; 85610; 93005; 96372; 97116; 97161; 97165; 97530; 99285; C1713; C1776; J1100; J1200; J1644; J2270; J2405; J2704; J3010; J3370; J7030; J7050

== ENCOUNTER → 2022-02-18 09:54 | Outpatient (BNVA) | payer MEDICARE, SELFPAY | PROVIDERS: Visit Provider Specialist | DX: S72.141D Displaced intertrochanteric fracture of right femur, subsequent encounter for closed fracture with routine healing (principal); X58.XXXD Exposure to other specified factors, subsequent encounter | CPT/HCPCS: 73502 ==

== ENCOUNTER → 2022-04-22 14:16 | Outpatient (BNVA) | payer MEDICARE, SELFPAY | PROVIDERS: Visit Provider Specialist | DX: X58.XXXA Exposure to other specified factors, initial encounter (principal); S72.141A Displaced intertrochanteric fracture of right femur, initial encounter for closed fracture | CPT/HCPCS: 73502 ==

== ENCOUNTER → 2023-05-17 13:57 | Outpatient (BNVA) | payer MEDICARE, SELFPAY | PROVIDERS: Visit Provider Nurse Practitioner Family | DX: S90.122A Contusion of left lesser toe(s) without damage to nail, initial encounter (principal); Y99.9 Unspecified external cause status | CPT/HCPCS: 11200; 17000; 17003; 99213 ==

== ENCOUNTER → 2023-11-17 15:11 | Outpatient (BNVA) | payer MEDICARE, SELFPAY | PROVIDERS: Visit Provider Dermatology | DX: L81.4 Other melanin hyperpigmentation (principal); L82.1 Other seborrheic keratosis; L57.0 Actinic keratosis; L57.8 Other skin changes due to chronic exposure to nonionizing radiation | CPT/HCPCS: 17000; 99213 ==

== ENCOUNTER → 2023-12-06 15:47 | Outpatient (BNVA) | payer MEDICARE, SELFPAY | PROVIDERS: Visit Provider Podiatrist Foot & Ankle Surgery | DX: M20.41 Other hammer toe(s) (acquired), right foot; M20.42 Other hammer toe(s) (acquired), left foot; M19.071 Primary osteoarthritis, right ankle and foot; M21.611 Bunion of right foot; M21.612 Bunion of left foot | CPT/HCPCS: 73630; 99203 ==

== ENCOUNTER → 2024-01-31 14:38 | Outpatient (BNVA) | payer MEDICARE, SELFPAY | PROVIDERS: Visit Provider Podiatrist Foot & Ankle Surgery | DX: M20.41 Other hammer toe(s) (acquired), right foot (principal); M20.42 Other hammer toe(s) (acquired), left foot; M19.071 Primary osteoarthritis, right ankle and foot; M21.611 Bunion of right foot; M21.612 Bunion of left foot | CPT/HCPCS: 99213 ==

== ENCOUNTER → 2024-11-22 14:30 | Outpatient (BNVA) | payer MEDICARE, SELFPAY | PROVIDERS: Visit Provider Nurse Practitioner Family | DX: L81.4 Other melanin hyperpigmentation (principal); L57.8 Other skin changes due to chronic exposure to nonionizing radiation; D48.5 Neoplasm of uncertain behavior of skin; L57.0 Actinic keratosis | CPT/HCPCS: 11102; 17000; 99213 ==

== ENCOUNTER → 2025-01-08 13:30 | Outpatient (BNVA) | payer MEDICARE, SELFPAY | PROVIDERS: Visit Provider Dermatology | DX: L82.1 Other seborrheic keratosis (principal); L81.4 Other melanin hyperpigmentation; C44.622 Squamous cell carcinoma of skin of right upper limb, including shoulder; D48.5 Neoplasm of uncertain behavior of skin; L57.0 Actinic keratosis | CPT/HCPCS: 11102; 17000; 17262; 99213 ==

== ENCOUNTER → 2025-07-11 13:18 | Outpatient (BNVA) | payer MEDICARE, SELFPAY | PROVIDERS: Visit Provider Nurse Practitioner Family | DX: L82.1 Other seborrheic keratosis (principal); L81.4 Other melanin hyperpigmentation; Z08 Encounter for follow-up examination after completed treatment for malignant neoplasm; Z85.828 Personal history of other malignant neoplasm of skin; D48.5 Neoplasm of uncertain behavior of skin; L57.0 Actinic keratosis | CPT/HCPCS: 11102; 17000; 99213 ==

== ENCOUNTER → 2025-08-14 09:15 | Outpatient (BNVA) | payer MEDICARE, SELFPAY | PROVIDERS: Visit Provider Dermatology | DX: L57.0 Actinic keratosis (principal); C44.319 Basal cell carcinoma of skin of other parts of face | CPT/HCPCS: 11642; 12052; 99213 ==